=== PATIENT | female | born 1940 | race Asian ===

== ENCOUNTER 2022-09-27 22:20 | Emergency (ER) | payer OTHER ==
[~2022-09-27] VITALS: Ht 152.4 cm; Wt 54.4 kg
[2022-09-27 22:28] VITALS: BP_SYST 134
--- NOTE | 2022-09-27 22:41 | NUR ---
DR TAO IN [facility] FOR EXAM
--- NOTE | 2022-09-27 23:05 | NUR ---
[employer] given written and verbal discharge instructions and verbalizes understanding. ER MD discussed with patient the results and treatment provided. Patient in stable condition. ID arm band removed. Patient educated on pain management and to follow up with PMD. Pain Scale . Opportunity for questions provided and answered. Medication side effect fact sheet provided.
== END 2022-09-27 23:00 ==
LOC: SED 22:20
DX: Z02.89 Encounter for other administrative examinations (principal)
CPT/HCPCS: 99283